=== PATIENT | female | born 1970 | race Caucasian/White ===

== ENCOUNTER 2016-09-26 11:50 | Emergency (ER) | payer OTHER ==
[2016-09-26 11:54] VITALS: BP 142/92
--- NOTE | 2016-09-26 12:00 | ER Document Report ---
ED Medical Screen (RME) - General Stated Complaint: LOWER ABDOMINAL PAIN Time seen by provider: 12:00 Mode of Arrival: Ambulatory Information source: Patient TRAVEL OUTSIDE OF THE [place] IN LAST 30 DAYS: No Physical Exam - Vital signs Vitals: Temp Pulse Resp BP Pulse Ox 97.8 F 69 16 142/92 H 97 09/26/16 11:53 09/26/16 11:53 09/26/16 11:53 09/26/16 11:53 09/26/16 11:53 Course - Vital Signs Vital signs: Temp Pulse Resp BP Pulse Ox 97.8 F 69 16 142/92 H 97 09/26/16 11:53 09/26/16 11:53 09/26/16 11:53 09/26/16 11:53 09/26/16 11:53
[2016-09-26] MEDS ORDERED: ONDANSETRON 4 MG TAB.RAPDIS PO ONE (12:01)
[2016-09-26 12:35] LABS: ABSOLUTE EOSINOPHILS # (AUTO) 0.2 10^3/uL (0.0-0.6); ABSOLUTE LYMPHOCYTES (AUTO) 1.7 10^3/uL (0.5-4.7); ABSOLUTE MONOCYTES (AUTO) 0.4 10^3/uL (0.1-1.4); ABSOLUTE NEUT (AUTO) 2.4 10^3/uL (1.7-8.2); BASOPHILS % (AUTO) 0.6 % (0-2); EOSINOPHILS % (AUTO) 3.4 % (0-6); HEMATOCRIT 40.3 % (36.0-47.0); HEMOGLOBIN 13.9 g/dL (12.0-15.5); HGB HCT DIFFERENCE 1.4; LYMPHOCYTES % (AUTO) 36.1 % (13-45); MEAN CORPUSCULAR HEMOGLOBIN 29.5 pg (27.0-33.4); MEAN CORPUSCULAR HGB CONC 34.5 g/dL (32.0-36.0); MEAN CORPUSCULAR VOLUME 85 fl (80-97); RED BLOOD COUNT 4.71 10^6/uL (3.72-5.28); RED CELL DISTRIBUTION WIDTH 13.2 % (11.5-14.0); SEGMENTED NEUTROPHILS % (AUTO) 50.9 % (42-78); WHITE BLOOD COUNT 4.8 10^3/uL (4.0-10.5)
[2016-09-26 12:46] LABS: ALANINE AMINOTRANSFERASE 24 U/L (9-52); ALBUMIN 3.9 g/dL (3.5-5.0); ALKALINE PHOSPHATASE 118 U/L (38-126); ANION GAP 9 (5-19); ASPARTATE AMINO TRANSFERASE 24 U/L (14-36); BILIRUBIN,TOTAL 0.6 mg/dL (0.2-1.3); BLOOD UREA NITROGEN 13 mg/dL (7-20); CALCIUM 9.2 mg/dL (8.4-10.2); CARBON DIOXIDE 32 mmol/L (22-30); CHLORIDE 100 mmol/L (98-107); GLUCOSE 100 mg/dL (75-110); SODIUM 141.4 mmol/L (137-145); TOTAL PROTEIN 6.9 g/dL (6.3-8.2)
[2016-09-26 13:02] LABS: APPEARANCE,URINE SLIGHTLY-CLOUDY; BILIRUBIN,URINE NEGATIVE (NEGATIVE); GLUCOSE, URINE NEGATIVE (NEGATIVE); KETONES,URINE NEGATIVE (NEGATIVE); LEUKOCYTE ESTERASE,URINE NEGATIVE (NEGATIVE); NITRITE,URINE NEGATIVE (NEGATIVE); PROTEIN,URINE NEGATIVE (NEGATIVE); URINE SPECIFIC GRAVITY 1.017; UROBILINOGEN,URINE NEGATIVE mg/dL (<2.0)
[2016-09-26 15:48] LABS: CHLAM PCR NOT DETECTED (NOT DETECT)
[2016-09-26] MEDS ORDERED: FLUCONAZOLE 100 MG TABLET PO ONE (16:26)
--- NOTE | 2016-09-26 16:32 | ER Document Report ---
ED GI/ - General Chief Complaint: Lower Abdominal Pain Stated Complaint: LOWER ABDOMINAL PAIN Mode of Arrival: Ambulatory Information source: Patient Notes: 46 y/o F presents to ED c/o intermittenly persistent pelvic/suprapubic pain. Patient reports achy/sharp pain to mid lower pelvis/suprapubic area radiating to bilateral lower pelvis. Reports symptoms have been intermittently persistent for approximately the last week and a half. She was seen by her primary care provider was evaluated here for possible UTI which she states was negative and was referred to the ED. Reports vaginal discharge but states is typical for her. States new sexual partner and unprotected intercourse within the last 2 months but denies known exposure to STI. Denies fever, abdominal pain, vaginal bleeding, nausea or vomiting, dysuria, hematuria, or flank pain. TRAVEL OUTSIDE OF THE [place] IN LAST 30 DAYS: No - HPI Patient complains to provider of: Pelvic pain Onset: Last week Timing/Duration: Persistent Quality of pain: Achy, Sharp Severity at maximum: Moderate Severity in ED: Mild Pain Level: 2 Location: Suprapubic, Pelvis Vaginal bleeding (Compared to normal period): None Sexual history: Active, New partner, Unprotected intercourse Similar symptoms previously: Yes Recently seen / treated by doctor: No - Related Data Allergies/Adverse Reactions: No Known Allergies Allergy (Verified 09/26/16 12:00) Past Medical History - General Information source: Patient - Social History Smoking Status: Never Smoker Frequency of alcohol use: None Drug Abuse: None Lives with: Family Family History: Reviewed & Not Pertinent Patient has suicidal ideation: No Patient has homicidal ideation: No - Past Medical History Cardiac Medical History: Reports: Hx Hypertension Musculoskeltal Medical History: Reports Hx Fibromyalgia Past Surgical History: Reports: Hx Tubal LigationComment Only: Hx Abdominal Surgery - Tumor removed as a child - Immunizations Hx Diphtheria, Pertussis, Tetanus Vaccination: Yes Review of Systems - Review of Systems Constitutional: No symptoms reported EENT: No symptoms reported Cardiovascular: No symptoms reported Respiratory: No symptoms reported Gastrointestinal: No symptoms reported Genitourinary: See HPI Female Genitourinary: See HPI Musculoskeletal: No symptoms reported Skin: No symptoms reported Hematologic/Lymphatic: No symptoms reported Neurological/Psychological: No symptoms reported -: Yes All other systems reviewed and negative Physical Exam - Vital signs Vitals: Temp Pulse Resp BP Pulse Ox 97.8 F 69 16 142/92 H 97 01/10/17 11:53 09/26/16 11:53 09/26/16 11:53 09/26/16 11:53 09/26/16 11:53 Interpretation: Normal - General General appearance: Appears well, Alert In distress: None - HEENT Head: Normocephalic, Atraumatic Eyes: Normal Pupils: PERRL - Respiratory Respiratory status: No respiratory distress Chest status: Nontender Breath sounds: Normal Chest palpation: Normal - Cardiovascular Rhythm: Regular Heart sounds: Normal auscultation Murmur: No Pulses: Normal: Radial, Posterior tibial, Dorsalis pedis Normal capillary refill: Yes - Abdominal Inspection: Normal Distension: No distension Bowel sounds: Normal Tenderness: Tender - Mild tenderness to palpation to bilateral and mid lower pelvic/suprapubic area.. No: Nontender, McBurney's point, Wong's sign, Guarding, Rebound, Other Organomegaly: No organomegaly - Genitourinary External exam: Normal. No: Lesions, Vesicles Speculum exam: Cervix closed, Vaginal discharge - Mild to moderate amount of whitish curd-like discharge. No: Lesions Vaginal bleeding: None Bimanuel exam: Normal. No: Cervical motion tender, Bladder/Urethral tender, Adnexal tenderness - Back Back: Normal, Nontender - Extremities General upper extremity: Normal inspection, Nontender, Normal color, Normal ROM , Normal strength, Normal temperature. No: Tender, Edema General lower extremity: Normal inspection, Nontender, Normal color, Normal ROM , Normal strength, Normal temperature, Normal weight bearing. No: Tender, Edema , Negro's sign - Neurological Neuro grossly intact: Yes Cognition: Normal Orientation: AAOx4 [place] Coma Scale Eye Opening: Spontaneous [place] Coma Scale Verbal: Oriented [place] Coma Scale Motor: Obeys Commands Elian Coma Scale Total: 15 Speech: Normal Motor strength normal: LUE, RUE, LLE, RLE Sensory: Normal - Psychological Associated symptoms: Normal affect, Normal mood - Skin Skin Temperature: Warm Skin Moisture: Dry Skin Color: Normal Course - Re-evaluation Re-evalutation: 09/26/16 16:35 Patient very well-appearing, hemodynamically stable, in no distress, afebrile. Transvaginal pelvic ultrasound unremarkable. Pelvic panel suggestive of bacterial vaginosis and yeast, chlamydia/gonorrhea/trichomonas negative. No suggestion of PID or other emergent GI/FINANCIAL UNDERWRITER infectious, inflammatory, or vascular etiology to symptoms. Patient appears stable for discharge and agrees with home care, follow-up, and ED return precautions. - Vital Signs Vital signs: Temp Pulse Resp BP Pulse Ox 97.8 F 69 16 142/92 H 97 09/26/16 11:53 09/26/16 11:53 09/26/16 11:53 09/26/16 11:53 09/26/16 11:53 - Laboratory Result Diagrams: 09/26/16 12:15 09/26/16 12:15 Laboratory results interpreted by me: 09/26/16 12:15 Carbon Dioxide 32 H - Diagnostic Test Radiology reviewed: Image reviewed, Reports reviewed Discharge - Discharge Clinical Impression: Pelvic pain, Bacterial vaginosis Condition: Stable Disposition: HOME, SELF-CARE Instructions: Pelvic Pain ([facility]), Vaginosis, Bacterial ([facility]), Vaginal Yeast Infection ([facility]), Fluconazole ([facility]), Metronidazole ([facility]), Acetaminophen, Use of Cjxx-Ydi-Vjicxly Ibuprofen ([facility]) Additional Instructions: Follow-up with your primary care provider this week. Return to the emergency department for any worsening symptoms or concerns. Prescriptions: Fluconazole [Diflucan] 150 mg PO ONCE PRN #1 tablet PRN Reason: Metronidazole 500 mg PO BID 7 Days Forms: Elevated Blood Pressure Referrals: ANGELINA STRANGE MD [Primary Care Provider] - Follow up tomorrow
== END 2016-09-26 17:51 | disposition home or self-care (01) ==
LOC: ER 11:50
DX: N76.0 Acute vaginitis (principal); B96.89 Other specified bacterial agents as the cause of diseases classified elsewhere; R10.2 Pelvic and perineal pain; I10 Essential (primary) hypertension; Z98.51 Tubal ligation status
CPT/HCPCS: 99284; 36415; 87086; 87070; 87205; 87210; 83690; 85025; 81025; 87077; 80053; 81001; 87491; 87591; 76830; 93976; S0119

== ENCOUNTER 2020-07-04 18:23 | Emergency (ER) | payer OTHER ==
[2020-07-04] MEDS ORDERED: IBUPROFEN 600 MG TABLET PO ONE (18:59)
[2020-07-04] MEDS ORDERED: ACETAMINOPHEN 325 MG TABLET PO ONE (18:59)
--- NOTE | 2020-07-04 19:03 | ER Document Report ---
ED Medical Screen (RME) - General Chief Complaint: Ankle Injury Stated Complaint: FALL/LEFT ANKLE PAIN,SWELLING Time Seen by Provider: 07/04/20 18:50 Primary Care Provider: ANGELINA STRANGE MD [Primary Care Provider] - Follow up as needed Notes: Patient is a 50-year-old female presents emergency department with a chief complaint of left ankle pain. Patient states that she was watching her granddaughter and she went to go step, but stepped wrong and twisted her ankle. She states that she does not know which way her ankle went. She did not take any medication for the pain. Exam: Edema noted to left lateral ankle. Dorsalis pedis and posterior tibial pulses 2+. Possible deformity noted to left lower leg, or possibly edema. Patient will be sent for an x-ray. I have greeted and performed a rapid initial assessment of this patient. A comprehensive ED assessment and evaluation of the patient, analysis of test results and completion of medical decision making process will be conducted by an additional ED providers. TRAVEL OUTSIDE OF THE U.S. IN LAST 30 DAYS: No - Related Data Allergies/Adverse Reactions: No Known Allergies Allergy (Verified 07/04/20 18:53) Home Medications: HCTZ, wellbutrin, lexapro Past Medical History - Social History Chew tobacco use (# tins/day): No Drug Abuse: None - Past Medical History Cardiac Medical History: Reports: Hx Hypertension Musculoskeltal Medical History: Reports Hx Fibromyalgia Past Surgical History: Reports: Hx Tubal LigationComment Only: Hx Abdominal Surgery - Tumor removed as a child - Immunizations Hx Diphtheria, Pertussis, Tetanus Vaccination: Yes Physical Exam - Vital signs Vitals: Temp Pulse Resp BP Pulse Ox 98.2 F 83 16 132/93 H 96 07/04/20 18:36 07/04/20 18:36 07/04/20 18:36 07/04/20 18:36 07/04/20 18:36 Course - Vital Signs Vital signs: Temp Pulse Resp BP Pulse Ox 98.2 F 83 16 132/93 H 96 07/04/20 18:36 07/04/20 18:36 07/04/20 18:36 07/04/20 18:36 07/04/20 18:36 Doctor's Discharge - Discharge Referrals: ANGELINA STRANGE MD [Primary Care Provider] - Follow up as needed
--- NOTE | 2020-07-04 19:50 | RADIOLOGY REPORT (SQ) ---
EXAM DESCRIPTION: ANKLE LEFT COMPLETE IMAGES COMPLETED DATE/TIME: 07/04/2020 6:26 pm REASON FOR STUDY: twisted ankle; pain and swelling. COMPARISON: None. NUMBER OF VIEWS: Three views. TECHNIQUE: AP, lateral, and oblique radiographic images acquired of the left ankle. LIMITATIONS: None. FINDINGS: MINERALIZATION: Normal. BONES: There is an acute oblique fracture through the distal fibula. Tiny avulsion injury at the med ial malleolus. Probable minimally displaced fracture posterior tibial plafond. Talus have a normal appearance. JOINTS: There is widening of the medial ankle joint space suggestive of ligamentous injury. Small samson int effusion. SOFT TISSUES: Soft tissue swelling anterior and at the medial and lateral malleoli. OTHER: No other significant finding. IMPRESSION: Acute fracture dislocation of the left ankle. Widening of the medial ankle joint space suggestive of ligamentous injury. TECHNICAL DOCUMENTATION: JOB ID: [id number] 2010 [employer]- All Rights Reserved Reading location - IP/workstation name: [email or web address]
--- NOTE | 2020-07-04 20:35 | ER Document Report ---
ED General - General Chief Complaint: Ankle Injury Stated Complaint: FALL/LEFT ANKLE PAIN,SWELLING Time Seen by Provider: 07/04/20 18:50 Primary Care Provider: ANGELINA STRANGE MD [NO LOCAL MD] - Follow up as needed HAO PONCE MD [ACTIVE STAFF] - Follow up as needed CRYSTAL ZHU JR, DO [ACTIVE PROVISIONAL STAFF] - Follow up as needed (New office [place] [address] Toll-Free: [phone] Office: [phone]) RAHEL ARVIZU DO [ACTIVE STAFF] - Follow up as needed TRAVEL OUTSIDE OF THE [place] IN LAST 30 DAYS: No - HPI Notes: 50-year-old female presents with injury to her left ankle. Patient states that she was with her grandchildren, she accidentally tripped over a toy and a beanbag chair. States that she fell and twisted her ankle. She states she heard a pop and experienced immediate pain. She has not been able to wiggle her toes or move her foot. She denies any other areas of injury. Did not hit her head. Occurred shortly prior to arrival. - Related Data Allergies/Adverse Reactions: No Known Allergies Allergy (Verified 07/04/20 18:53) Home Medications: HCTZ, wellbutrin, lexapro Past Medical History - General Information source: Patient - Social History Smoking Status: Never Smoker Chew tobacco use (# tins/day): No Drug Abuse: None Family History: Reviewed & Not Pertinent Patient has homicidal ideation: No - Past Medical History Cardiac Medical History: Reports: Hx Hypertension Musculoskeletal Medical History: Reports Hx Fibromyalgia Past Surgical History: Reports: Hx Tubal LigationComment Only: Hx Abdominal Surgery - Tumor removed as a child - Immunizations Hx Diphtheria, Pertussis, Tetanus Vaccination: Yes Review of Systems - Review of Systems Constitutional: No symptoms reported EENT: No symptoms reported Cardiovascular: No symptoms reported Respiratory: No symptoms reported Gastrointestinal: No symptoms reported Genitourinary: No symptoms reported Female Genitourinary: No symptoms reported Musculoskeletal: See HPI Skin: Other - No wound Hematologic/Lymphatic: No symptoms reported Neurological/Psychological: denies: Numbness Physical Exam - Vital signs Vitals: Temp Pulse Resp BP Pulse Ox 98.2 F 83 16 132/93 H 96 07/04/20 18:36 07/04/20 18:36 07/04/20 18:36 07/04/20 18:36 07/04/20 18:36 - General General appearance: Appears well, Alert - HEENT Head: Normocephalic, Atraumatic Extraocular movements intact: Yes Pupils: PERRL - Respiratory Respiratory status: No respiratory distress - Cardiovascular Rhythm: Regular Pulses: Normal: Dorsalis pedis - Abdominal Inspection: Obese - Extremities Notes: Tenderness to medial and lateral malleoli with associated swelling. Foot held in eversion. Decreased range of motion at ankle, unable to plantar or dorsiflex. No tenderness to proximal lower leg or knee - Neurological Neuro grossly intact: Yes Cognition: Normal Orientation: AAOx4 Notes: Sensation intact to left leg - Psychological Associated symptoms: Normal affect - Skin Skin Temperature: Warm Notes: No wound Course - Re-evaluation Re-evalutation: 50-year-old female with left ankle injury after accidentally tripping and falling. On exam she has tenderness to medial and lateral malleoli with associated soft tissue swelling. There is no laceration present. Decreased range of motion. Through the triage process she had an x-ray done which shows a distal fibular fracture and a small avulsion fragment to the medial malleolus. However given concern for more extensive fracture, I will first obtain a CT ankle to evaluate. Pain medication ordered. 07/04/20 22:10 CT ankle has resulted and there is evidence of a trimalleolar fracture. I updated patient on the results of this and the need for sedation/reduction. She has provided consent. I also discussed with her the significance of this fracture and need for very close orthopedic follow-up. Patient states that she has to go through the [facility] for a referral, though would like contact information for local orthopedics provided. 07/05/20 00:43 Ankle was reduced at bedside under conscious sedation, splint applied. Patient tolerated well. Repeat x-ray shows improvement in the joint space widening. 07/05/20 01:10 Patient has returned to her preprocedural baseline after sedation. Left leg remains neurovascularly intact. We discussed again need for Ortho follow-up this week, [facility] Have provided a Hiawatha Dosepak and prescription for Hiawatha. Return cautions given, stable time discharge. - Vital Signs Vital signs: Temp Pulse Resp BP Pulse Ox 98.2 F 88 14 133/83 H 98 07/04/20 18:36 07/05/20 00:06 07/05/20 00:10 07/05/20 00:10 07/05/20 00:10 - Diagnostic Test Radiology reviewed: Image reviewed, Reports reviewed Procedures - Conscious Sedation Conscious sedation Time started: 00:05 Time completed: 00:15 Consent obtained: Yes Indication: Fracture reduction Last meal: Greater than 2 hours Pt with a mild systemic disease.: P2. - ASA Classification. Airway Evaluation: Normal anatomy, Obese. No: Neck immobility Mallampati Classification: Class 2 Used during procedure: Suction available, IV access obtained, Pulse ox on pt., facepiece line supervisor on pt. Medications administered: Other - Propofol I personally performed/intraservice time: Sedation, Procedure, 30 min or less Notes: Brief desaturation to 88% with improvement following jaw thrust and nasal cannula - Joint Reduction/Fracture Care Left Ankle Time completed: 00:10 Consent obtained: Yes Conscious sedation: Yes Pre-procedure NV exam: Yes Fracture: Closed Manipulation comment: Traction, internal rotation, dorsiflexion with tibial pressure Post-procedure NV exam: Yes Post-reduction x-ray: Joint reduced Reduction attempts: 1 Complications: No Discharge - Discharge Clinical Impression: Closed left ankle fracture Qualifiers: Encounter type: initial encounter Qualified Code(s): S82.892A - Other fracture of left lower leg, initial encounter for closed fracture Disposition: HOME, SELF-CARE Instructions: Ankle Stirrup Splint ([facility]), Use of Crutches ([facility]), Post Sedation Instructions ([facility]) Additional Instructions: Please follow-up with orthopedics as soon as possible, need to be seen this week. [facility], as discussed this is a fracture that will likely require surgery. I have provided contact information for 3 of the orthopedic doctors in the area. Use crutches at all times. No weightbearing to the left foot. While at rest, elevate and can apply ice to the splint. Use pain medication as needed. Return to the emergency department for any concerning worsening symptoms. Prescriptions: Hydrocodone/Acetaminophen [Hiawatha 5-325 mg Tablet] 1 tab PO Q4H PRN 5 Days #20 tablet PRN Reason: For Pain Referrals: ANGELINA STRANGE MD [NO LOCAL MD] - Follow up as needed RAHEL ARVIZU DO [ACTIVE STAFF] - Follow up as needed HAO PONCE MD [ACTIVE STAFF] - Follow up as needed CRYSTAL ZHU JR, DO [ACTIVE PROVISIONAL STAFF] - Follow up as needed (New office is [facility] [address], [place] [address] Toll-Free: [phone] Office: [phone])
[2020-07-04] MEDS ORDERED: HYDROCODONE/ACETAMINOPHEN 5-325 MG TABLET PO ONE (20:44)
--- NOTE | 2020-07-04 21:48 | RADIOLOGY REPORT (SQ) ---
EXAM DESCRIPTION: CLINICAL HISTORY: 50 years Female L ankle. eval fracture/dislocation COMPARISON: Plain film 07/04/2020. TECHNIQUE: Contiguous axial CT images obtained through the left ankle without IV contrast. Reformatted images obtained. This exam was performed according to our department optimization program which includes automated exposure control, adjustment of the mA and/or kv according to patient size and/or use of iterative reconstruction technique. FINDINGS: There is a fracture of the distal fibular metadiaphysis with mild posterior displacement of the distal fracture fragment. Small comminuted fracture of the posterior malleolus. There is widening of the medial aspect of the ankle mortise and mild lateral displacement of the foot with a small fracture fragment in between the medial malleolus and the talus. Suspect avulsion injury from the medial malleolus. There is associated soft tissue swelling. Ligamentous injury is not excluded. Small ankle effusion. IMPRESSION: Findings consistent with trimalleolar fracture with tiny avulsion fracture off the medial malleolus, widening of the medial aspect of the ankle mortise some minimal lateral displacement of the foot and distal fracture fragments Disruption or partial injury to the deltoid ligament not excluded
[2020-07-04] MEDS ORDERED: PROPOFOL INJ 200 MG/20 ML VIAL IV ONE (22:09)
--- NOTE | 2020-07-05 00:37 | RADIOLOGY REPORT (SQ) ---
EXAM DESCRIPTION: Left ankle RadLex: XR ANKLE 3 OR MORE VIEWS Views: 3 CLINICAL HISTORY: 50 years Female; reduction; COMPARISON: 07/04/2020 Impression: A splint has been placed. There is persistent slight displacement of the distal fibular fracture, similar to prior exam. Fracture fragment of the distal margin of the medial malleolus is not as well-visualized due to artifact from the overlying splint material.
[2020-07-05] MEDS ORDERED: HYDROCODONE/ACETAMINOPHEN 5-325 MG (6 TAB/ER DISP) PO PRN (00:39)
[2020-07-05 01:11] VITALS: BP 128/83
== END 2020-07-05 01:26 | disposition home or self-care (01) ==
LOC: ER 18:23
DX: S82.852A Displaced trimalleolar fracture of left lower leg, initial encounter for closed fracture (principal); W01.0XXA Fall on same level from slipping, tripping and stumbling without subsequent striking against object, initial encounter; I10 Essential (primary) hypertension
CPT/HCPCS: 27818; 99285; 99152; 73610 ×2; 73700; J2704

== ENCOUNTER 2020-07-15 05:28 | Day surgery (SDC) | payer OTHER ==
[2020-07-12 13:37] LABS: APPEARANCE,URINE CLOUDY; BILIRUBIN,URINE SMALL (NEGATIVE); CALCIUM OXALATE CRYSTALS,URINE TOO NUMEROUS TO CNT /HPF; COLOR,URINE AMBER; GLUCOSE, URINE NEGATIVE (NEGATIVE); KETONES,URINE TRACE mg/dL (NEGATIVE); LEUKOCYTE ESTERASE,URINE SMALL (NEGATIVE); NITRITE,URINE NEGATIVE (NEGATIVE); PROTEIN,URINE 100 mg/dL (NEGATIVE); URINE SPECIFIC GRAVITY 1.032
--- NOTE | 2020-07-12 13:42 | RADIOLOGY REPORT (SQ) ---
EXAM DESCRIPTION: CHEST PA/LATERAL IMAGES COMPLETED DATE/TIME: 07/12/2020 1:30 pm REASON FOR STUDY: PRE-OP COMPARISON: None. EXAM PARAMETERS: NUMBER OF VIEWS: two views TECHNIQUE: Digital Frontal and Lateral radiographic views of the chest acquired. RADIATION DOSE: NA LIMITATIONS: none FINDINGS: LUNGS AND PLEURA: No opacities, masses or pneumothorax. No pleural effusion. MEDIASTINUM AND HILAR STRUCTURES: No masses or contour abnormalities. HEART AND VASCULAR STRUCTURES: Heart normal size. No evidence for failure. BONES: No acute findings. HARDWARE: None in the chest. OTHER: No other significant finding. IMPRESSION: NO SIGNIFICANT RADIOGRAPHIC FINDING IN THE CHEST. TECHNICAL DOCUMENTATION: JOB ID: [id number] 2010 [employer]- All Rights Reserved Reading location - IP/workstation name: [email or web address]
[2020-07-12 14:19] LABS: ABSOLUTE EOSINOPHILS # (AUTO) 0.1 10^3/uL (0.0-0.6); ABSOLUTE LYMPHOCYTES (AUTO) 1.2 10^3/uL (0.5-4.7); ABSOLUTE MONOCYTES (AUTO) 0.3 10^3/uL (0.1-1.4); ABSOLUTE NEUT (AUTO) 5.7 10^3/uL (1.7-8.2); BASOPHILS % (AUTO) 0.3 % (0-2); EOSINOPHILS % (AUTO) 0.9 % (0-6); HEMATOCRIT 35.9 % (36.0-47.0); LYMPHOCYTES % (AUTO) 16.9 % (13-45); MEAN CORPUSCULAR HEMOGLOBIN 31.9 pg (27.0-33.4); MEAN CORPUSCULAR HGB CONC 36.1 g/dL (32.0-36.0); MEAN CORPUSCULAR VOLUME 88 fl (80-97); MONOCYTES % (AUTO) 4.3 % (3-13); RED BLOOD COUNT 4.07 10^6/uL (3.72-5.28); RED CELL DISTRIBUTION WIDTH 13.2 % (11.5-14.0); SEGMENTED NEUTROPHILS % (AUTO) 77.6 % (42-78); TOTAL CELLS COUNTED % (AUTO) 100 %; WHITE BLOOD COUNT 7.3 10^3/uL (4.0-10.5)
[2020-07-12 14:45] LABS: PLATELET COUNT 219 10^3/uL (150-450)
[2020-07-12 14:53] LABS: ALBUMIN 4.4 g/dL (3.5-5.0); ANION GAP 12 (5-19); BLOOD UREA NITROGEN 18 mg/dL (7-20); C-REACTIVE PROTEIN 5.3 mg/L (<10.0); CALCIUM 9.8 mg/dL (8.4-10.2); CARBON DIOXIDE 28 mmol/L (22-30); CHLORIDE 98 mmol/L (98-107); GLUCOSE 126 mg/dL (75-110); POTASSIUM 4.1 mmol/L (3.6-5.0)
[2020-07-12 14:57] LABS: ERYTHROCYTE SEDIMENTATION RATE 32 mm/hr (0-30)
--- NOTE | 2020-07-12 17:19 | EKG REPORT ---
SEVERITY:- NORMAL ECG - SINUS RHYTHM : Confirmed by: Benjamin Zepeda MD 12-Jul-2020 17:18:17
[~2020-07-15 05:28] MED LIST: CEFAZOLIN 2 GM/D5W RTU 2 GM/50 ML RTUPB IV PRN; LACTATED RINGERS 1000 ML IV PRN; LIDOCAINE 0.5% INJ-PF (5 MG/ML) 50 ML SDV SUBCUT PRN
[2020-07-15] MEDS ORDERED: CEFAZOLIN 2 GM/D5W RTU 2 GM/50 ML RTUPB IV ONE (05:59)
[2020-07-15] MEDS ORDERED: LIDOCAINE 2% INJ (20 MG/ML) 20 ML MDV ONE (06:58)
[2020-07-15] MEDS ORDERED: FENTANYL CITRATE INJ/PF 100 MCG/2 ML AMPUL ONE (06:59)
[2020-07-15] MEDS ORDERED: MIDAZOLAM 2 MG/2 ML INJ ONE (07:00)
[2020-07-15] MEDS ORDERED: DEXAMETHASONE SOD PHOSPHATE INJ 4 MG/1 ML VIAL ONE (07:00)
[2020-07-15] MEDS ORDERED: PROPOFOL INJ 200 MG/20 ML VIAL IV ONE (07:00)
[2020-07-15] MEDS ORDERED: ONDANSETRON HCL INJ/PF 4 MG/2 ML SDV ONE (07:00)
[2020-07-15] MEDS ORDERED: BUPIVACAINE HCL 0.5 % INJ/PF 30 ML SDV ONE (07:09)
[2020-07-15] MEDS ORDERED: LIDOCAINE 1%/EPINEPHRINE INJ 20 ML VIAL ONE (07:10)
[2020-07-15] MEDS ORDERED: LIDOCAINE 1% INJ-PF (10 MG/ML) 30 ML SDV ONE (07:12)
[2020-07-15] MEDS ORDERED: ROPIVACAINE HCL 0.5% INJ/PF (5 MG/1 ML) 30 ML SDV ONE ×2 (07:13→09:35)
[2020-07-15] MEDS ORDERED: PROMETHAZINE HCL INJ 25 MG/1 ML VIAL IV PRN (07:48)
[2020-07-15] MEDS ORDERED: DIPHENHYDRAMINE HCL 50 MG/ML VIAL IV PRN (07:48)
[2020-07-15] MEDS ORDERED: FENTANYL CITRATE INJ/PF 100 MCG/2 ML AMPUL IV PRN ×3 (07:48)
[2020-07-15] MEDS ORDERED: ONDANSETRON HCL INJ/PF 4 MG/2 ML SDV IV PRN ×2 (07:48→09:19)
[2020-07-15] MEDS ORDERED: MEPERIDINE HCL/PF INJ 25 MG/1 ML DISP.SYRIN IV PRN (07:48)
[2020-07-15] MEDS ORDERED: MORPHINE SULFATE 10 MG/ML INJ IV PRN ×2 (07:48→09:19)
--- NOTE | 2020-07-15 09:14 | Operative Report ---
Operative Report DATE OF SURGERY: 07/15/20 PREOPERATIVE DIAGNOSIS: Left bimalleolar equivalent ankle fracture. POSTOPERATIVE DIAGNOSIS: Left bimalleolar equivalent ankle fracture OPERATION: Left ankle open reduction internal fixation, syndesmotic tight rope fixation. SURGEON: CRYSTAL ZHU JR ANESTHESIA: GA TISSUE REMOVED OR ALTERED: None COMPLICATIONS: None ESTIMATED BLOOD LOSS: 10 cc PROCEDURE: The patient was evaluated preoperatively and the skin was determined to be adequate for operative intervention. They are provided with 2 g Ancef preoperatively. There was transferred to the operating suite and laid supine on the operating table. They are placed under general anesthesia. After adequate anesthesia the left lower extremities and prepped and draped in sterile sterile fashion. An appropriate timeout was then performed followed by exsanguinating the left lower extremity with an Esmarch and inflation of the tourniquet to 250 m mercury The left ankle was evaluated under fluoroscopy and the fracture site was identified. The incision was planned and then a direct lateral incision was made to the fibula. This was carried under the subcutaneous tissue and then the fascia was appreciated. This was bluntly dissected with a Metzenbaum scissor as well as a periosteal elevator. Any crossing all vascular structures were then cauterized. A branch of the superficial peroneal nerve was encountered and isolated and protected. This was retracted anteriorly. The fracture was identified and the fracture edges were delineated with rongeur, and curette. A lobster claw was then used to anatomically reduce and ortiz in the fracture. After this was done I placed a oblique lag screw through the fracture site. This was done by first drilling the proximal cortex and then subsequently drilling the distal cortex and a lag by intention technique. After this was achieved a lobster clamp was removed and a plate was placed. A lateral fibular locking plate was positioned under assistance with fluoroscopy and then utilized in a neutralization technique. Initially a nonlocking screw was placed distally to bring the plate to bone followed by distal locking screws. 3 screws were also placed proximal to the fracture site and nonlocking fashion. This was again performed with the assistance of fluoroscopy to ensure appropriate screw length and positioning of the plate. After this was done I performed an external rotation stress test that demonstrated continued medial clear space widening and syndesmotic widening. The decision was made to proceed with a tight rope syndesmotic fixation. An Arthrex titanium tight rope syndesmotic button was selected. A pointed reduction forcep was used to reduce the syndesmosis anatomically. The remaining open hole of the plate was used to allow drilling through the fibula and tibia in the appropriate orientation. After this a syndesmotic button was placed through the plate and reduced. Upon placement further fluoroscopy was utilized to ensure appropriate reduction of the syndesmosis and no further medial clear space widening. The sutures were then cut and the wound was copiously irrigated with dilute Betadine solution. After thorough irrigation we proceeded to close the fascial layer over the plate with a running Vicryl. Achieving appropriate soft tissue closure over the plate we then proceeded to place subcutaneous sutures with a 2-0 Monocryl in inverted interrupted fashion. Finally a running 3-0 nylon was used in the skin. The wound was then sterilely dressed with Xeroform, 4 x 4's and a sterile web roll followed by a well-padded posterior U splint. Patient was then awake from anesthesia and transferred to PACU in stable condition.
[2020-07-15] MEDS ORDERED: OXYCODONE-ACETAMINOPHEN 5-325 MG TABLET PO PRN (09:19)
[2020-07-15] MEDS ORDERED: RINGERS SOLUTION,LACTATED 1,000 ML IV PRN (09:19)
--- NOTE | 2020-07-15 09:19 | Discharge Summary ---
Discharge Summary (SDC) - Discharge Final Diagnosis: Right bimalleolar equivalent ankle fracture status post open reduction internal fixation Date of Surgery: 07/15/20 Discharge Date: 07/15/20 Condition: Stable Treatment or Instructions: The injured lower extremity placed in a well-padded splint. This is to be kept clean and dry. Encourage elevation of the lower extremity whenever possible over the next few days to decrease the potential swelling. Take pain medications as prescribed, include Tylenol up to 3000 mg a day. Nonweightbearing left lower extremity, use crutches or knee scooter for safe mobilization. No driving until further evaluation in the office Take aspirin daily for DVT prophylaxis, 325 mg p.o. daily for 6 weeks. Follow-up in the office in approximately 10 days for further evaluation. May follow JOSE LUIS if there is any interval acute changes consistent with potential infection or reinjury. Referrals: TIEN REMY DO [Primary Care Provider] - Discharge Diet: As Tolerated Respiratory Treatments at Home: Deep Breathing/Coughing Discharge Activity: No Driving, Keep Legs Elevated, Slowly Increase Activity, No tub bath Adaptive Devices on Discharge: Axillary Crutches Report the Following to Your Physician Immediately: Shortness of Breath, Fever over 101 Degrees, Unusual Bleeding, Drainage-Yellow
[2020-07-15] MEDS ORDERED: ACETAMINOPHEN 1,000 MG/100 ML RTUPB IV ONE ×2 (09:21→10:00)
[2020-07-15] MEDS ORDERED: KETOROLAC TROMETHAMINE INJ/PF 30 MG/1 ML SDV ONE (09:21)
[2020-07-15] MEDS ORDERED: KETOROLAC TROMETHAMINE INJ/PF 30 MG/1 ML SDV IV ONE (10:00)
--- NOTE | 2020-07-15 11:06 | RADIOLOGY REPORT (SQ) ---
EXAM DESCRIPTION: ANKLE LEFT COMPLETE IMAGES COMPLETED DATE/TIME: 07/15/2020 9:37 am REASON FOR STUDY: ORIF LEFT ANKLE ASSISTED WITH FLUORO IN OR S82.852A DISPLACED TRIMALLEOLAR FRACTU RE OF LEFT LOWER LEG, COMPARISON: None. FLUOROSCOPY TIME: 0.3 minutes Spot images saved to PACS. TECHNIQUE: Intra-operative images acquired during surgical procedure to evaluate progress. NUMBER OF IMAGES: 9 LIMITATIONS: None. FINDINGS: Fluoroscopy was provided for intraoperative procedure. Please refer to the operative repo rt for further discussion. IMPRESSION: IMAGE(S) OBTAINED DURING PROCEDURE. COMMENT: Quality ID [id number]: Final reports for procedures using fluoroscopy that document radiation exp osure indices, or exposure time and number of fluorographic images (if radiation exposure indices are not available) Please consult full operative report of the attending physician for description of the procedure. TECHNICAL DOCUMENTATION: JOB ID: [id number] 2010 [employer]- All Rights Reserved Reading location - IP/workstation name: [email or web address]
[2020-07-15 13:54] VITALS: BP 118/70
--- NOTE | 2020-07-15 15:07 | RADIOLOGY REPORT (SQ) ---
EXAM DESCRIPTION: NO CHG FLUORO COMPLETE DATE/TIME: 07/15/2020 9:37 am REASON FOR STUDY: ORIF LEFT ANKLE ASSISTED WITH FLUORO IN OR S82.852A DISPLACED TRIMALLEOLAR FRACTU RE OF LEFT LOWER LEG, FINDINGS: Please see combined report for performance of procedure and radiologic supervision and int erpretation. IMPRESSION: Please see combined report for performance of procedure and radiologic supervision and i nterpretation. Reading location - IP/workstation name: [email or web address]
== END 2020-07-15 12:00 | disposition home or self-care (01) ==
LOC: OROUT 05:28
PROVIDERS: ATTEND Orthopaedic Surgery
DX: S82.842A Displaced bimalleolar fracture of left lower leg, initial encounter for closed fracture (principal); W18.09XA Striking against other object with subsequent fall, initial encounter; M79.7 Fibromyalgia; I10 Essential (primary) hypertension; F32.9 Major depressive disorder, single episode, unspecified; Z79.899 Other long term (current) drug therapy; Z03.818 Encounter for observation for suspected exposure to other biological agents ruled out
CPT/HCPCS: 27814; C1776; 01480; 36415; 71046; 80048; 81001; 81025; 82040; 82306; 83036; 84132; 85025; 85652; 86140; 86850; 86900; 86901; 87070; 87635; 93005; 93010; C1713; C9803; J0131; J0690; J1100; J1885; J2250; J2405; J2704; J2795; J3010; J3490